=== PATIENT | male | born 1980 | race Hispanic/Latino ===

== ENCOUNTER 2016-10-02 05:33 | Emergency (ER) | payer OTHER ==
[2016-10-02 05:48] VITALS: BP 121/58; PULSE 60; RESP 16; TEMP 98.1; O2SAT 100
[2016-10-02] MEDS ORDERED: Amoxicillin-Clav 875-125 mg Tab PO STA (06:15)
[2016-10-02] MEDS ORDERED: Amoxicillin-Clav 875-125 mg Tab PO ONE (06:19)
--- NOTE | 2016-10-02 06:35 | ED PDOC ---
HPI: Dental Pain/Injury Time Seen by Provider: 10/02/16 05:58 Chief Complaint (Nursing): Dental Pain Chief Complaint (Provider): Dental Pain History Per: Patient History/Exam Limitations: no limitations Onset/Duration Of Symptoms: Days (Four) Current Symptoms Are (Timing): Still Present Severity: Mild Additional Complaint(s): 35 y/o male patient presenting to the ED with toothache. Patient states the pain has been persistent for four days and he has taken Ibuprofen with no relief , in addition to applying oregano oil. He states that his mandibular incisors are painful and that his bridge prosthetic became dislodged. He denies any fever. 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 Past Medical History Reviewed: Historical Data, Nursing Documentation, Vital Signs Vital Signs: Last Vital Signs Temp 98.1 F 10/02/16 05:45 Pulse 60 10/02/16 05:45 Resp 16 10/02/16 05:45 BP 121/58 L 10/02/16 05:45 Pulse Ox 100 10/02/16 05:45 - Medical History PMH: Back Problems - Surgical History Surgical History: Back Surgery - Family History Family History: States: Unknown Family Hx - Social History Current smoker - smoking cessation education provided: No Alcohol: None Drugs: Denies - Home Medications Home Medications: Ambulatory Orders Medication Instructions Recorded Amoxicillin/Clavulanate [Augmentin 1 tab PO BID #14 tab 10/02/16 875 MG-125 MG] Lidocaine 2% Viscous 15 ml MM TID PRN #1 bottle 10/02/16 traMADol [Ultram] 50 mg PO Q6 PRN #12 tab 10/02/16 - Allergies Allergies/Adverse Reactions: Allergies Allergy/AdvReac Type Severity Reaction Status Date / Time codeine AdvReac VOMITING Verified 10/02/16 06:05 Review of Systems ROS Statement: Except As Marked, All Systems Reviewed And Found Negative Constitutional: Negative for: Fever ENT: Positive for: Other ((+)Toothache) Cardiovascular: Negative for: Chest Pain Respiratory: Negative for: Cough, Shortness of Breath Gastrointestinal: Negative for: Nausea, Vomiting Physical Exam - Reviewed Nursing Documentation Reviewed: Yes Vital Signs Reviewed: Yes - Physical Exam Appears: Positive for: Non-toxic, No Acute Distress Head Exam: Positive for: ATRAUMATIC, NORMAL INSPECTION, NORMOCEPHALIC Skin: Positive for: Normal Color, Warm, Dry ENT: Positive for: Other ((+) teeth 28/29/30 advanced decay is noted, no active drainage/redness; mild tenderness is appreciated) Neck: Positive for: Normal, Painless ROM, Supple Respiratory: Negative for: Respiratory Distress Lymphatic: Positive for: Other (no cervical adenopathy) Neurologic/Psych: Positive for: Alert, Oriented - ECG O2 Sat by Pulse Oximetry: 100 (RA) Pulse Ox Interpretation: Normal Medical Decision Making Medical Decision Making: Time: 611 Initial impression: Acute toothache Initial plan: --AMOXICILLIN --LIDOCAINE --TRAMADOL 06:20AM -- Statement: Provider reviewed the patients [facility] profile which shows multiple prescriptions filled for narcotics most recently: * July 22 he filled Oxycodone 10mg 90 tablets. * August 12 he filled Oxycodone 10mg 120 tablets. * August 22 he filled Oxycodone 15mg 90 tablets. * Provider reminded patient that he did not volunteer that he is under treatment with a pain management and taking narcotics for pain. The patient subsequently readily admitted to usage of narcotics as prescribed by a apain document management consultant. * Patient states that he has not filled any additional prescriptions since August. 06:45AM: Re-evaluation/Discharge Instructions: Patient refused to leave the emergency room claiming persistent pain. Patient was advised he would be breaking his pain management contract by taking opiates and the provider would not assist with providing the patient with RX opiates without speaking to his paint specialist. Patient subsequently consented to provider to contact pain his management physician. At 6:30 provider had lengthy discussion with pain management provider Dr Mccarthy ( covering Dr Fernandez); she informed functional tester typewriters that she knows patient very well and he had called her earlier this morning. She also states the patient was verbally abusive towards her on phone during encounter. After provider reviewed [employer] results with her, she reviewed her EMR and advised, the patient should NOT be given any prescription opioids given pain management contract. However she did state the patient may be given ONE 15mg Oxycodone in the emergency room and instructed to see his provider in her office for further follow-up related to pain management or prescriptions. This was explained at length to the patient and the patient was encouraged to follow up with his dentist as well as his pain management specialty office. The patient continued to express his need for opiates and asked the provider to proviode dispense an additional 15 mg tablet for his use later in day. This was unequivocally refused by this provider. The patient was encouraged to seek dental care within 24 hours and allow Ultram/Viscous Lidocaine and antibiotic to take synergistic effect for purposes of pain management. The patient left ED and this encounter dissatisfied as he mentioned to the assigned RN. Counseling was provided regarding the diagnosis and prognosis. All questions answered and there is agreement with the plan to discharge home with instructions. Patient stable for discharge. Pt instructed he may return at any time if symptoms persist or worsen, but provider would not continue to provide opiates. He was educated regarding the risks of opiate dependency including, but not limited to dependency, overdose, . Scribe Attestation: Documented by Franca Hernandez, acting as a scribe for Anshul Navarro MD. Scribe Attestation: All medical record entries made by the Scribe were at my direction and personally dictated by me. I have reviewed the chart and agree that the record accurately reflects my personal performance of the history, physical exam, medical decision making, and the department course for this patient. I have also personally directed, reviewed, and agree with the discharge instructions and disposition. Disposition - Clinical Impression Clinical Impression: Toothache, Opiate dependence - Patient ED Disposition Is Patient to be Admitted: No Counseled Patient/Family Regarding: Diagnosis, Need For Followup, Rx Given - Disposition Disposition: Routine/Home Disposition Time: 06:55 Condition: STABLE Additional Instructions: Please follow up with your dentist in 24 hours Prescriptions: Amoxicillin/Clavulanate [Augmentin 875 MG-125 MG] 1 tab PO BID #14 tab Lidocaine 2% Viscous 15 ml MM TID PRN #1 bottle PRN Reason: toothache traMADol [Ultram] 50 mg PO Q6 PRN #12 tab PRN Reason: toothache Instructions: Toothache (ED)
[2016-10-02] MEDS ORDERED: oxyCODONE 5 mg Immediate Release Tab PO STA (06:57)
== END 2016-10-02 07:18 | disposition home or self-care (01) ==
LOC: H.ER 05:33
DX: F11.20 Opioid dependence, uncomplicated (principal); K08.89 Other specified disorders of teeth and supporting structures

== ENCOUNTER 2017-04-15 10:04 | Emergency (ER) | payer OTHER ==
--- NOTE | 2017-04-15 10:51 | ED PDOC ---
HPI: General Adult Time Seen by Provider: 04/15/17 10:17 Chief Complaint (Nursing): Upper Extremity Problem/Injury Chief Complaint (Provider): Upper Extremity Problem/Injury History Per: Patient History/Exam Limitations: no limitations Onset/Duration Of Symptoms: Days Current Symptoms Are (Timing): Still Present Additional Complaint(s): 36 year old male presents to the emergency department after he consulted his doctor who recommended an emergency MRI for his neck due to pain and numbness to the medial aspect of the right shoulder radiating down to the right arm over 1 week ago. States he was stretching after he woke up and suddenly felt the pain in the shoulder. Reports taking Percocet 15 mg about 1 hours prior to arrival for pain with relief. Denies cough, congestion, weakness, leg pain, and bowel or urine incontinence. Is due to get surgery for neck disc herniations. Of note, patient has an upcoming appointment for an MRI. Last MRI completed 2 years ago which revealed cervical herniated discs. Patient has also had an L4 and L5 spinal fusion with titanium. PMD: [place] Past Medical History Reviewed: Historical Data, Nursing Documentation, Vital Signs - Medical History PMH: Back Problems Other PMH: Herniated cervical discs - Surgical History Surgical History: Back Surgery (spinal fusion with titanium) - Family History Family History: States: Unknown Family Hx - Social History Current smoker - smoking cessation education provided: No Alcohol: None Drugs: Denies - Home Medications Home Medications: Ambulatory Orders Medication Instructions Recorded Amoxicillin/Clavulanate [Augmentin 1 tab PO BID #14 tab 10/02/16 875 MG-125 MG] Lidocaine 2% Viscous 15 ml MM TID PRN #1 bottle 10/02/16 traMADol [Ultram] 50 mg PO Q6 PRN #12 tab 10/02/16 - Allergies Allergies/Adverse Reactions: Allergies Allergy/AdvReac Type Severity Reaction Status Date / Time codeine AdvReac VOMITING Verified 10/02/16 06:05 Review of Systems ROS Statement: Except As Marked, All Systems Reviewed And Found Negative (As per HPI, otherwise negative) ENT: Negative for: Nose Congestion Respiratory: Negative for: Cough Genitourinary Male: Negative for: Incontinence (bowel or urinary) Musculoskeletal: Positive for: Shoulder Pain (Right). Negative for: Leg Pain Neurological: Positive for: Numbness (Medial aspect of the right arm and right shoulder). Negative for: Weakness Physical Exam - Reviewed Nursing Documentation Reviewed: Yes Vital Signs Reviewed: Yes - Physical Exam Appears: Positive for: No Acute Distress Head Exam: Positive for: NORMAL INSPECTION Skin: Positive for: Normal Color, Warm, Dry ENT: Positive for: Normal ENT Inspection Neck: Positive for: Painless ROM, Supple, Trachea Midline. Negative for: Limited ROM Cardiovascular/Chest: Positive for: Regular Rate, Rhythm. Negative for: Murmur Respiratory: Positive for: Normal Breath Sounds. Negative for: Accessory Muscle Use, Wheezing, Respiratory Distress Back: Positive for: Normal Inspection. Negative for: L CVA Tenderness, R CVA Tenderness Extremity: Positive for: Normal ROM (Full range of motion of the shoulder with pain. 4/5 strengths of the upper extremities), Other (Mild decreased sensation to the right posterior lateral neck region. Decreased sensation to the medial aspect of the right arm and shoulder. ). Negative for: Pedal Edema Neurologic/Psych: Positive for: Alert, Oriented (x3) - Radiology X-Ray: Read By Radiologist X-Ray Interpretation: No Acute Disease - Other Rad mri X-Ray: Read By Radiologist X-Ray Interpretation: no acute - Progress ED Course And Treament: 1321: Stable. No acute fx. Paresthesias. No cord involvement. Fu with surgeon. FU surgeon for shoulder, possible rotator cuff issues. Medical Decision Making Medical Decision Making: Time: 1044 Initial Impression: Neck and shoulder pain with numbness down the right extremity is setting of known herniated cervical discs Initial Plan: --Cervical Spine MRI w. CONT --Shoulder Right x-ray --Reevaluation Time: 1115 --Shoulder x-ray FINDINGS: BONES: Normal. No fracture. JOINTS: Normal. Glenohumeral and acromioclavicular joints preserved. No osteoarthritis. SOFT TISSUES: Normal. OTHER FINDINGS: None. IMPRESSION: Normal radiographs of the right shoulder. Time: 1255 --Cervical MRI FINDINGS: The current study reveals no acute compression fractures no retropulsed fragments. Vertebral bodies exhibit normal stature. Minimal of reversal of the normal upper cervical lordosis however vertebral bodies otherwise exhibit normal stature. Vertebral bodies and facets normally aligned. Mild multilevel degenerative spondylosis. At the C3-C4 level, there is minor disc desiccation and anterior disc space narrowing. Small asymmetric disc bulge ridge complex larger on the right than left results in minimal canal narrowing and mild flattening of the ventral surface of the thecal sac and spinal cord more. Exit foramina appear adequate. At the C4-C5 level, there is adequate disc height with mild age related disc desiccation. There is a small central and bilateral focal disc herniation ( associated with a tiny fissure in the posterior annulus) that indents the ventral surface of the thecal sac and spinal cord. The overall central canal is slightly narrowed as well. Exit foramina are adequate. The disc appears to lift the posterior longitudinal ligament on the right side with questionable small amount of superior subligamentous extension of disc material over short distance. At the C5 C6 level, there is mild age related disc desiccation. Small central and bilateral disc bulge (associated with a tiny fissure in the posterior annulus) results in very minor canal narrowing and or focally indents the ventral surface of the thecal sac. No significant cord compression. Exit foramina appear adequate. No intrinsic signal changes are seen within the visualized spinal cord. Cervicomedullary junction unremarkable. IMPRESSION: No acute compression fractures no retropulsed fragments. Minor multilevel degenerative spondylosis most notably affecting the C4-C5 and to a lesser degree C3-C4 and C5-C6 levels as detailed above. Scribe Attestation: Documented by Lupe Evans, acting as a scribe for Martin Gatica MD. Provider Scribe Attestation: All medical record entries made by the Scribe were at my direction and personally dictated by me. I have reviewed the chart and agree that the record accurately reflects my personal performance of the history, physical exam, medical decision making, and the department course for this patient. I have also personally directed, reviewed, and agree with the discharge instructions and disposition. Disposition - Clinical Impression Clinical Impression: Shoulder pain, Paresthesia - Patient ED Disposition Is Patient to be Admitted: No Counseled Patient/Family Regarding: Studies Performed, Diagnosis, Need For Followup - Disposition Referrals: [facility] [Outside] - 04/17/17 Mirian Tomas MD [Staff Provider] - 04/17/17 Disposition: Routine/Home Disposition Time: 13:24 Condition: STABLE Additional Instructions: Return if not better in 3 days. See your neck surgeon for your numbness. See the orthopedic doctor for your shoulder. Instructions: Paresthesia (ED), Shoulder Pain (ED) Forms: [employer] ([place])
--- NOTE | 2017-04-15 11:17 | RAD ---
PROCEDURE: Radiographs of the Right Shoulder HISTORY: shoulder pain COMPARISON: No prior. FINDINGS: BONES: Normal. No fracture. JOINTS: Normal. Glenohumeral and acromioclavicular joints preserved. No osteoarthritis. SOFT TISSUES: Normal. OTHER FINDINGS: None. IMPRESSION: Normal radiographs of the right shoulder.
--- NOTE | 2017-04-15 12:56 | MRI ---
PROCEDURE: MRI cervical spine dated 04/15/2017 HISTORY: Pain. COMPARISON: No prior study available for comparison. TECHNIQUE: Multiecho multiplanar sequences were performed through the cervical spine without the use of intravenous contrast. FINDINGS: The current study reveals no acute compression fractures no retropulsed fragments. Vertebral bodies exhibit normal stature. Minimal of reversal of the normal upper cervical lordosis however vertebral bodies otherwise exhibit normal stature. Vertebral bodies and facets normally aligned. Mild multilevel degenerative spondylosis. At the C3-C4 level, there is minor disc desiccation and anterior disc space narrowing. Small asymmetric disc bulge ridge complex larger on the right than left results in minimal canal narrowing and mild flattening of the ventral surface of the thecal sac and spinal cord more. Exit foramina appear adequate. At the C4-C5 level, there is adequate disc height with mild age related disc desiccation. There is a small central and bilateral focal disc herniation (associated with a tiny fissure in the posterior annulus) that indents the ventral surface of the thecal sac and spinal cord. The overall central canal is slightly narrowed as well. Exit foramina are adequate. The disc appears to lift the posterior longitudinal ligament on the right side with questionable small amount of superior subligamentous extension of disc material over short distance. At the C5 C6 level, there is mild age related disc desiccation. Small central and bilateral disc bulge (associated with a tiny fissure in the posterior annulus) results in very minor canal narrowing and or focally indents the ventral surface of the thecal sac. No significant cord compression. Exit foramina appear adequate. No intrinsic signal changes are seen within the visualized spinal cord. Cervicomedullary junction unremarkable. IMPRESSION: No acute compression fractures no retropulsed fragments. Minor multilevel degenerative spondylosis most notably affecting the C4-C5 and to a lesser degree C3-C4 and C5-C6 levels as detailed above.
[2017-04-15 13:40] VITALS: BP 126/75; PULSE 75; RESP 14; TEMP 98; O2SAT 100
== END 2017-04-15 13:36 | disposition home or self-care (01) ==
LOC: H.ER 10:04
DX: M25.511 Pain in right shoulder (principal); R20.2 Paresthesia of skin; M54.2 Cervicalgia